=== PATIENT | male | born 1965 | race Caucasian/White ===

== ENCOUNTER 2018-12-28 09:26 | Day surgery (SDC) | payer BC ==
[~2018-12-28 09:26] MED LIST: CEFAZOLIN 2 Gram 2 GM/50 ML BAG IVPB ONE; CELECOXIB 100 MG CAPSULE PO ONE; FAMOTIDINE 20MG TABLET PO ONE; MECLIZINE 25 MG TABLET PO ONE; METOCLOPRAMIDE 10 MG TABLET PO ONE; VANCOMYCIN HCL 1,000 MG in DEXTROSE 5 % IN WATER 250 ML IVPB ONE
[2018-12-28] MEDS ORDERED: FENTANYL PF 100MCG/2ML VIAL IV ONE (09:27)
[2018-12-28] MEDS ORDERED: MIDAZOLAM HCL 2MG/2ML VIAL IV ONE (09:27)
[2018-12-28] MEDS ORDERED: TRANEXAMIC ACID 1,000 MG/10 ML ML IV ONE ×2 (09:27)
[2018-12-28] MEDS ORDERED: 0.9 % SODIUM CHLORIDE 10 ML VIAL IVP ONE (09:27)
[2018-12-28] MEDS ORDERED: KETAMINE HCL 100MG/1ML VIAL INJ ONE (09:27)
[2018-12-28] MEDS ORDERED: PROPOFOL 10 MG/ML VIAL IV ONE (09:27)
[2018-12-28 10:28] LABS: ABO GROUP A; ANTIBODY SCREEN NEGATIVE (NEGATIVE); RH TYPE POSITIVE
[2018-12-28] MEDS: FENTANYL PF 100MCG/2ML VIAL IVP PRN ×2 (11:00→11:25)
[2018-12-28] MEDS ORDERED: BUPIVACAINE 0.5% W/EPI MPF 30 ML VIAL SQ ONE (13:18)
[2018-12-28] MEDS ORDERED: RINGERS SOLUTION,LACTATED 550 ML IV ONE (14:15)
[2018-12-28] MEDS ORDERED: MAGNESIUM HYDROXIDE 30 ML UDC PO PRN (14:21)
[2018-12-28] MEDS ORDERED: AL HYDROX/MAG HYDROX 30ML UD PO PRN (14:21)
[2018-12-28] MEDS ORDERED: ZOLPIDEM TARTRATE 5 MG TABLET PO PRN (14:21)
[2018-12-28] MEDS ORDERED: NALOXONE 0.4 MG/1 ML VIAL IVP PRN (14:21)
[2018-12-28] MEDS ORDERED: ACETAMINOPHEN W/ CODEINE 300MG/60MG TABLET PO PRN ×2 (14:21)
[2018-12-28] MEDS ORDERED: KETOROLAC 30 MG/ML VIAL IVP PRN ×2 (14:21)
[2018-12-28] MEDS ORDERED: DIPHENHYDRAMINE HCL 25 MG CAPSULE PO PRN (14:21)
[2018-12-28] MEDS ORDERED: ONDANSETRON HCL IV 4 MG/2 ML VIAL IVP PRN (14:21)
[2018-12-28] MEDS ORDERED: ACETAMINOPHEN 325 MG TAB PO PRN (14:21)
[2018-12-28] MEDS ORDERED: BISACODYL 10 MG SUPP RC PRN (14:21)
[2018-12-28] MEDS: HYDROMORPHONE HCL 2 MG/ML VIAL IM PRN (16:22)
[2018-12-28] MEDS: HYDROCODONE/APAP 10/325 TABLET PO PRN ×2 (19:25→20:33)
[2018-12-28] MEDS: POTASSIUM CHLORIDE/D5-0.9%NACL 20 MEQ/1,000 ML BAG IV SCH (19:26)
[2018-12-28] MEDS: CEFAZOLIN 2 Gram 2 GM/50 ML BAG IVPB SCH (20:33)
[2018-12-28] MEDS: TRAMADOL HCL 50 MG TABLET PO PRN (21:57)
[2018-12-28] MEDS: DOCUSATE SODIUM 100 MG CAPSULE PO SCH (21:58)
[2018-12-29] MEDS: HYDROCODONE/APAP 10/325 TABLET PO PRN ×4 (00:14→12:37)
[2018-12-29] MEDS: TRAMADOL HCL 50 MG TABLET PO PRN (03:33)
[2018-12-29] MEDS: CEFAZOLIN 2 Gram 2 GM/50 ML BAG IVPB SCH ×2 (04:28→12:33)
[2018-12-29] MEDS: HYDROMORPHONE HCL 2 MG/ML VIAL IM PRN (05:03)
[2018-12-29] MEDS: POTASSIUM CHLORIDE/D5-0.9%NACL 20 MEQ/1,000 ML BAG IV SCH ×2 (05:09→09:23)
[2018-12-29 06:49] LABS: HEMATOCRIT 39.1 % (42.0-52.0); HEMOGLOBIN 13.1 gm/dl (14.0-18.0)
[2018-12-29 07:01] LABS: BLOOD UREA NITROGEN 10 mg/dL (6-20); CREATININE 0.7 mg/dL (0.7-1.2); EST GLOMERULAR FILTRATION RATE > 60 mL/min; GLUCOSE,RANDOM 116 mg/dL (74-109)
--- NOTE | 2018-12-29 08:51 | Operative Note ---
DATE OF SURGERY: 12/28/2018 PREOPERATIVE DIAGNOSIS: End-stage arthrosis of the right knee. POSTOPERATIVE DIAGNOSIS: End-stage arthrosis of the right knee. OPERATION: Cemented right total knee arthroplasty using [employer]hew Sandra II components with a size 6 Oxinium femur, a size 5 stem tibia baseplate, an 11 mm lipped tibial highly crosslinked insert, and a 35 mm all plastic patella. Staff Surgeon: Jerome Greene MD Anesthesia: Spinal. PREPARATION: Chloraprep. INDIVIDUAL CONSIDERATIONS: None. PROCEDURE: The patient was taken to the operating room, placed supine on the operating room table. He had a successful induction of spinal anesthetic. The right lower extremity was prepped and draped in the usual fashion. The patient had a midline approach to the knee. The limb was elevated and tourniquet was inflated to 250 mmHg. Sharp dissection carried down through skin and subcutaneous tissue. Small veins were coagulated with a Bovie. A medial arthrotomy was performed. The patella was everted and the knee was flexed. He had exposed bone in the medial compartment with bone loss and changes in the notch with exposed bone. Fat pad was resected, ACL was sacrificed, provisional anterior meniscectomies were performed. The capsule was released from the medial proximal tibia. The initial femoral airplane pilot photogrammetry hole was then made freehand. The intramedullary femoral cutting jig was placed. It was cut in 7.0 degrees of valgus and adjusted for rotation and secured with pins for a 10 mm resection. The initial transverse cut was then made. The skin guide was placed in the anterior and posterior airplane pilot photogrammetry holes. It was found that a size 6 would be appropriate. The anterior and posterior cuts followed by chamfer cuts were made. Osteophytes removed, and a size 6 trial was placed and found to fit well. The tibia was brought forward, and the remainder of the meniscal remnants removed with a Bovie. The extraarticular tibial cutting jig was placed. It was cut in neutral with a 3-degree AP slope. Care was taken to adjust for rotation and flexion using the extraarticular alignment guide and bony landmarks. It was set for a 9 mm resection keyed off the high lateral side and secured with pins. When cutting the tibia, care was taken to preserve the PCL insertion on the tibia. After removing the osteophytes, I could easily fit a size 5. It was adjusted for rotation and secured with pins. With an 11 mm trial and femoral trial, there was excellent motion and stability, ligamentous balance, rotation alignment, patellofemoral tracking even at this point were normal. The femoral airplane pilot photogrammetry holes were impacted and a tri-flange tibial stamp was impacted, and these trial components were removed. The patient had a thick patella. Roughly 9 mm of bone was removed free hand, and the 3 airplane pilot photogrammetry holes were drilled for the 35 mm patella. The tourniquet was let down briefly to get bleeders posteriorly and then placed back up again. Hemostasis was again obtained with a Bovie. After irrigation with copious amounts of pulsatile Betadine and saline, bony surfaces were then dried. A size 5 stem tibia baseplate was cemented into place followed by impaction of 11 mm lipped tibial insert followed by cementing in the size 6 Oxinium femur followed by cementing in the 35 mm patella. The implant surfaces were compressed, excess cement was removed, and after the cement had set, there was excellent motion and stability, ligamentous balance, rotation alignment, and patellofemoral tracking were normal. No lateral release was required. The knee was again irrigated out. Tourniquet was let down. Hemostasis was obtained with a Bovie. The skin, periosteum, and subcutaneous tissue were infiltrated with 30 mL of 0.5% Marcaine with epinephrine. The capsule was then closed with a running #2 quill, subcu was closed in layers with running 0 quill, skin was closed with evon. Saline 30 mL was mixed with 1 g of tranexamic acid, and it was injected into the knee through a sterile 18-gauge needle and a sterile bulky compressive MAXINE-type dressing was applied. The patient tolerated the procedure well. Needle and sponge counts were correct. Estimated blood loss was minimal, and he was taken back to recovery in good condition. There were no complications. JUSTINO
[2018-12-29] MEDS: DOCUSATE SODIUM 100 MG CAPSULE PO SCH (09:25)
--- NOTE | 2018-12-29 09:51 | Rehab Evaluation ---
Patient Information - Patient Information Diagnosis: R knee DJD Ordered Treatment: PT Evaluate and Treat Status: Initial Evaluation Surgery: Yes (R TKA) Date of Surgery: 12/28/18 Past Medical/Surgical Hx: PAST MEDICAL/SURGICAL HISTORY Surgery to Affected Area? No Recent Surgery? Past Surgical History SALIVARY GLAND BILAT KNEE SCOPE TONSILS HERNIA REPAIR C SCOPE PMH - Respiratory Hx Respiratory Disorders No PMH - Cardiovascular Hx Cardiovascular Disorders No Exercise Tolerance Fair Hx of Migraines Yes: HX OF Comment: D/T KNEE PAIN PMH - Neuro Hx Neurological Disorders Yes PMH - GI Hx Gastrointestinal Disorders No PMH - Hx Genitourinary Disorders No PMH - Endocrine Hx Endocrine Disorders No Hx Diabetes No Hx Thyroid Disease No PMH - Musculoskeletal Hx Musculoskeletal Disorders Yes Hx Arthritis Yes: KNEES RIGHT ANKLE PMH - Psych Hx Psychiatric Problems Yes Hx Depression Yes: MILD R/T KNEE PAIN PMH - Hematology/Oncology Hx Hematology/Oncology No Disorders Premorbid Status: Detail (Prior to surgery the patient was independent with all mobility.) Social History: Detail (The patient lives alone in a one story home with 3 steps at the enterance and one railing.The bathroom is equipped with a tub/ shower combination, hand held shower and a standard height toilet. There are no grab bars in the bathroom.) Precautions: [place], Fall, Other (WBAT on the R LE.) - Time With Patient Total Time Spent With Patient (Min): 25 Treatment Procedures: Detail (Initial Evaluation.) Subjective Information - Subjective Information Per Patient (The patient had complaints of L knee and quad region pain which he rated as 5 using 0 ti 10 pain scale.) Objective Data - Mental Status Patient Orientation: Oriented x3 - Visual Perception Appears within normal limits for therapeutic activities - ROM Not within normal limits (The patient's R knee AROM is limited as to be expected following surgery. All other AROM is WFL.) - Strength/Tone Not within normal limits (The patient's R LE strength was not tested due to s/p surgery. The patient was able to isolate R quad but was unable to complete a SLR due in part to R quadricep region pain. The patient's L LE strength was WFL.) - Bed Mobility Independent (The patient was independent with supine to and from sit transfer with use of L LE lifing R LE.) - Transfers Independent (The patient was independent with sit to and from stand transfer.) - Balance Balance Sitting: Good Balance Standing: Good - Gait Detail (The patient ambulated with 2 wheeled walker WBAT on the R LE independently a distance of 80 feet x 1. The patient ambulated on 3 steps with folded walker and one railing using proper technique with supervision for safety.) Therapy Assessment - Therapy Assessment Detail (The patient was independent with all bed mobility, transfers and ambulation. The patient has met all inpatient PT goals and is discharged from inpatient PT. The patient is to receive Home PT.) Patient Education - Patient Education Teaching Topic: Exercise/Activity (The patient's TKA HEP was reviewed including : ankle pumps, quad sets, hamstring sets, gluteal sets, heel slides supine and SLR. Patient was unable to complete a SLR due to quad region pain.) Response: Return Demonstration Teaching Method: Discussion, Demonstration, Handout Teaching Recipient: Patient Barriers To Learning: None Problem List - Problem List Physical Therapy Problem List: Detail (1) R knee pain 2) Decreased R knee AROM and R LE strength) Goals - Goals Physical Therapy Goals: The patient has met all inpatient PT goals and is discharged from inpatient PT. Prognosis - Prognosis Good Plan - Plan Physical Therapy Plan: The patient is discharged for inpatient PT and is to continue with Home PT.
[2018-12-29] MEDS ORDERED: RIVAROXABAN 10 MG TABLET PO SCH (10:00)
[2018-12-29] MEDS ORDERED: ASPIRIN 81 MG TABEC PO SCH (10:00)
[2018-12-29] MEDS ORDERED: MULTIVITAMINS/MINERALS TABLET PO SCH (10:00)
[2018-12-29] MEDS ORDERED: FERROUS SULFATE 325 MG TAB PO SCH (10:00)
[2018-12-29] MEDS ORDERED: ASCORBIC ACID 500 MG TAB PO SCH (10:00)
--- NOTE | 2018-12-29 10:28 | Rehab Evaluation ---
Patient Information - Patient Information Diagnosis: R knee DJD Ordered Treatment: OT Evaluate and Treat Status: Initial Evaluation Surgery: Yes (R TKA) Date of Surgery: 12/28/18 Past Medical/Surgical Hx: PAST MEDICAL/SURGICAL HISTORY Surgery to Affected Area? No Recent Surgery? Past Surgical History SALIVARY GLAND BILAT KNEE SCOPE TONSILS HERNIA REPAIR C SCOPE PMH - Respiratory Hx Respiratory Disorders No PMH - Cardiovascular Hx Cardiovascular Disorders No Exercise Tolerance Fair Hx of Migraines Yes: HX OF Comment: D/T KNEE PAIN PMH - Neuro Hx Neurological Disorders Yes PMH - GI Hx Gastrointestinal Disorders No PMH - Hx Genitourinary Disorders No PMH - Endocrine Hx Endocrine Disorders No Hx Diabetes No Hx Thyroid Disease No PMH - Musculoskeletal Hx Musculoskeletal Disorders Yes Hx Arthritis Yes: KNEES RIGHT ANKLE PMH - Psych Hx Psychiatric Problems Yes Hx Depression Yes: MILD R/T KNEE PAIN PMH - Hematology/Oncology Hx Hematology/Oncology No Disorders Premorbid Status: Detail (Prior to surgery the patient was independent with all mobility, home mgmt, meal prep and laundry. 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 There are no grab bars in the bathroom. He has a standard walker and crutches.) Precautions: [place], Fall, Other (WBAT on the R LE.) - Time With Patient Total Time Spent With Patient (Min): 40 Treatment Procedures: Detail (OT eval low complexity) Subjective Information - Subjective Information Per Patient Objective Data - Pain Pain Present: Yes (4-5/10) - Mental Status Patient Orientation: Oriented x3 - Visual Perception Appears within normal limits for therapeutic activities - ROM Within normal limits (Cristobal UE AROM WNL) - Strength/Tone Within normal limits (Cristobal UE strength WNL) - Coordination Appears within normal limits for therapeutic activities - Bed Mobility Independent (Ind with supine to sit) - Transfers Independent (Ind with sit to stand from EOB and chair height.) - Balance Balance Sitting: Good Balance Standing: Good - Sensation Intact - Gait Detail (Pt ambulating in room with walker Indly.) - ADL's/IADL's Detail (Pt educated and able to demonstrate learning of modified LE dressing techniques including doffing slipper socks and briefs and donning boxer shorts, pants, socks and tennis shoes. Reviewed technique for donning elsa socks, pt required mod assist but reports his mother will be staying with him and can assist. Reviewed kitchen and shower safety and modifications, pt verbalized understanding.) Therapy Assessment - Therapy Assessment Detail (Pt is Ind with modified LE dressing techniques.) Problem List - Problem List Occupational Therapy Problem List: Detail (No current IP OT problems identified. ) Goals - Goals Occupational Therapy Goals: No current IP OT goals identified. Prognosis - Prognosis Good Plan - Plan Occupational Therapy Plan: No further IP OT recommended. Thank you for this referral.
== END 2018-12-29 13:30 | disposition home health service (06) ==
LOC: SUR 09:26 → MEDSURG 14:54 → SUR 12-29 13:30
PROVIDERS: ATTEND Orthopaedic Surgery
DX: M17.11 Unilateral primary osteoarthritis, right knee (principal); F12.90 Cannabis use, unspecified, uncomplicated
CPT/HCPCS: 76942; 80048; 85014; 85018; 86850; 86900; 86901; 93005; 94760; J1885; J2405; J3480; J3490; J7060; J7120

== ENCOUNTER 2019-10-18 09:44 | Day surgery (SDC) | payer BC ==
[~2019-10-18 09:44] MED LIST changes: +ACETAMINOPHEN 1,000 MG/100 ML BTL IVPB ONE; -CEFAZOLIN 2 Gram 2 GM/50 ML BAG IVPB ONE; -CELECOXIB 100 MG CAPSULE PO ONE; -FAMOTIDINE 20MG TABLET PO ONE; -MECLIZINE 25 MG TABLET PO ONE; -METOCLOPRAMIDE 10 MG TABLET PO ONE; -VANCOMYCIN HCL 1,000 MG in DEXTROSE 5 % IN WATER 250 ML IVPB ONE
[2019-10-18] MEDS ORDERED: FENTANYL PF 100MCG/2ML VIAL IV ONE (09:45)
[2019-10-18] MEDS ORDERED: LIDOCAINE 2% MDV (20MG/ML) 20ML VIAL IV ONE (09:45)
[2019-10-18] MEDS ORDERED: PROPOFOL 10 MG/ML VIAL IV ONE (09:45)
[2019-10-18] MEDS ORDERED: RINGERS SOLUTION,LACTATED 1,000 ML IV ONE ×2 (10:10→11:25)
[2019-10-18] MEDS ORDERED: BUPIVACAINE 0.5% W/EPI MPF 30 ML VIAL IU ONE (11:24)
[2019-10-18] MEDS ORDERED: METHYLPREDNISOLONE 40MG/VIAL IU ONE (11:24)
--- NOTE | 2019-10-19 12:41 | Operative Note ---
DATE OF SURGERY: 10/18/2019 PREOPERATIVE DIAGNOSIS: Arthrofibrosis of the left knee. POSTOPERATIVE DIAGNOSIS: Arthrofibrosis of the left knee. OPERATION: 1. Left knee manipulation. 2. Left knee injection. STAFF SURGEON: Jerome Greene MD ANESTHESIA: General. PREPARATION: Chloraprep. INDIVIDUAL CONSIDERATIONS: None. PROCEDURE: The patient was taken to the operating room, placed supine on the operating room table. He had a successful induction of general anesthetic. I went ahead and manipulated his knee. He was in full extension and at about 95 degrees I felt an end point, I was easily able to push him into 130 degrees. I then prepped him superiorly and medially and then mixed sterilely 20 mL of 0.5% Marcaine with epinephrine and 40 mg of Depo-Medrol and injected through a sterile 20-gauge needle. A Band-Aid was applied. He was taken back to recovery in good condition. There were no complications. JUSTINO
== END 2019-10-18 12:00 | disposition home or self-care (01) ==
LOC: SUR 09:44
PROVIDERS: ATTEND Orthopaedic Surgery
DX: M24.662 Ankylosis, left knee (principal)
CPT/HCPCS: 27570; 20610; 01380; J3010; J1030; J7120